=== PATIENT | male | born 1960 | race Caucasian/White ===

== ENCOUNTER 2019-01-20 03:38 | Emergency (ER) | payer MEDICAID ==
[~2019-01-20] VITALS: Ht 182.9 cm; Wt 102.0 kg
[~2019-01-20 03:38] MED LIST: CLIN-90 PO; PHEN-716 PO; POTA20TA19 PO
[2019-01-20 03:40] VITALS: BP 141/88
[2019-01-20] MEDS ORDERED: ACYC-202 PO (04:08)
== END 2019-01-20 04:22 | disposition home or self-care (01) ==
LOC: ER 03:39
DX: L84 Corns and callosities (principal); B00.9 Herpesviral infection, unspecified; I25.10 Atherosclerotic heart disease of native coronary artery without angina pectoris; E11.9 Type 2 diabetes mellitus without complications; Z86.718 Personal history of other venous thrombosis and embolism; F11.90 Opioid use, unspecified, uncomplicated; Z88.2 Allergy status to sulfonamides; Z88.8 Allergy status to other drugs, medicaments and biological substances; Z79.899 Other long term (current) drug therapy
CPT/HCPCS: 99283

== ENCOUNTER 2019-03-21 20:04 | Emergency (ER) | payer MEDICAID ==
[~2019-03-21] VITALS: Ht 182.9 cm; Wt 101.8 kg
[2019-03-21 20:41] LABS: BASOPHILS # (AUTO) 0.1 X10'3 (0-0.2); BASOPHILS % (AUTO) 0.7 % (0-1); EOSINOPHILS # (AUTO) 0.1 X10'3 (0-0.9); EOSINOPHILS % (AUTO) 1.8 % (0-6); HEMOGLOBIN 11.7 g/dl (14.0-17.9); LYMPHOCYTES # (AUTO) 1.9 X10'3 (1.1-4.8); LYMPHOCYTES % (AUTO) 27.4 % (21-51); MEAN CORPUSCULAR HEMOGLOBIN 30.6 PG (27.0-31.0); MEAN CORPUSCULAR HGB CONC 34.5 g/dL (33.0-36.5); MEAN CORPUSCULAR VOLUME 88.7 FL (78-98); MEAN PLATELET VOLUME 8.1 FL (7.4-10.4); MONOCYTES # (AUTO) 0.7 X10'3 (0-0.9); MONOCYTES % (AUTO) 10.9 % (2-12); NEUTROPHILS % (AUTO) 59.2 % (42-75); PLATELET COUNT 199 X10'3 (140-440); RED BLOOD COUNT 3.83 X10'6 (4.70-6.10); RED CELL DISTRIBUTION WIDTH 16.7 % (11.5-14.5); WHITE BLOOD COUNT 6.8 X10'3 (4.5-11.0)
[2019-03-21 20:52] LABS: ALANINE AMINOTRANSFERASE 22 U/L (12-78); ALBUMIN 3.4 G/DL (3.4-5.0); ALBUMIN/GLOBULIN RATIO 0.8 (1.1-1.5); ALKALINE PHOSPHATASE 125 IU/L (46-116); ANION GAP 9 (8-16); ASPARTATE AMINO TRANSFERASE 25 U/L (10-37); BILIRUBIN,TOTAL 0.5 MG/DL (0.1-1.0); BLOOD UREA NITROGEN 10 MG/DL (7-18); BUN/CREATININE RATIO 9.4 (5.4-32.0); CHLORIDE 103 MMOL/L (99-107); CREATININE 1.06 MG/DL (0.60-1.10); GLUCOSE 121 MG/DL (70-104); POTASSIUM 3.5 MMOL/L (3.5-5.1); SODIUM 142 MMOL/L (135-145); TOTAL CARBON DIOXIDE 30.4 MMOL/L (24-32); TOTAL PROTEIN 7.5 G/DL (6.4-8.2); eGFR 72 ML/MIN
[2019-03-21] MEDS ORDERED: NO HOME MEDS (21:42)
[2019-03-21] MEDS ORDERED: CEPH250T PO (22:29)
[2019-03-21] MEDS ORDERED: HYDROcodone/acetaminophen 5mg/325mg tablet PO ONE (22:35)
[2019-03-21] MEDS ORDERED: ondansetron 4mg rapidly disintigrating tab PO ONE (22:35)
[2019-03-21 22:50] VITALS: BP 121/98
== END 2019-03-21 22:52 | disposition home or self-care (01) ==
LOC: ER 21:28
DX: L03.116 Cellulitis of left lower limb (principal); L03.115 Cellulitis of right lower limb; I25.10 Atherosclerotic heart disease of native coronary artery without angina pectoris; E11.9 Type 2 diabetes mellitus without complications; F11.90 Opioid use, unspecified, uncomplicated; Z86.19 Personal history of other infectious and parasitic diseases; Z86.718 Personal history of other venous thrombosis and embolism; Z88.2 Allergy status to sulfonamides; Z88.8 Allergy status to other drugs, medicaments and biological substances; Z79.899 Other long term (current) drug therapy
CPT/HCPCS: 36415; 71045; 80053; 83880; 84145; 84484; 85025; 93005; 99284

== ENCOUNTER 2019-10-15 23:50 | Emergency (ER) | payer MEDICAID ==
[~2019-10-15] VITALS: Ht 182.9 cm; Wt 11.4 kg
[~2019-10-15 23:50] MED LIST changes: -CLIN-90 PO; +NO HOME MEDS; -PHEN-716 PO; -POTA20TA19 PO
--- NOTE | 2019-10-16 01:45 | NUR ---
DR TAPIA REPORTS PT WILL NEED CT WITH CONTRAST AND US OF THE LEG. [employer] OFFICER AT BEDSIDE. PT IS COOPERATIVE. VSS. PAIN IS 8 OTU OF 10 TO LEFT BACK OF KNEE, CALF.
[2019-10-16] MEDS ORDERED: iohexol 300mg/ml 100ml inj. ONE (01:52)
--- NOTE | 2019-10-16 02:03 | NUR ---
KENZIE CALLED BACK AT 02:[address]
--- NOTE | 2019-10-16 02:57 | NUR ---
pt with piv, 20 g in rac. Vascular US at bedside. Pt will then go to CT with contrast for LLE. Officer remains at bedside.
--- NOTE | 2019-10-16 03:20 | NUR ---
US completed. pt to ct now.
[2019-10-16 04:21] VITALS: BP 111/65
--- NOTE | 2019-10-16 04:30 | NUR ---
PT RETURNED FROM CT. DR. TAPIA INQUIRING ABOUT DELAY IN LABS. UPDATED THAT LABS WERE IN ERROR NOT COLLETED AND TO BE COLLECTED IMMEDIATELY. LABS DRAWN FROM PIV. PT WITH STABLE VS. OFFICER REMAINS AT BEDSIDE.
[2019-10-16] MEDS ORDERED: DOXY100C43 PO (04:42)
[2019-10-16] MEDS ORDERED: CEPH500C5 PO (04:42)
--- NOTE | 2019-10-16 04:44 | NUR ---
DR TAPIA TALKING WITH PT. ISAIASTS WE ARE WAITING FOR LAB RESULTS,BUT SHE ANTICIPATES DISCHARGE.
[2019-10-16 04:53] LABS: ALBUMIN 2.8 G/DL (3.4-5.0); ANION GAP 3 (8-16); BASOPHILS # (AUTO) 0.1 X10'3 (0-0.2); BASOPHILS % (AUTO) 1.3 % (0-1); BLOOD UREA NITROGEN 12 MG/DL (7-18); BUN/CREATININE RATIO 13.2 (5.4-32.0); CHLORIDE 102 MMOL/L (99-107); CREATININE 0.91 MG/DL (0.60-1.10); EOSINOPHILS # (AUTO) 0.2 X10'3 (0-0.9); EOSINOPHILS % (AUTO) 2.1 % (0-6); GLUCOSE 103 MG/DL (70-104); HEMATOCRIT 34.8 % (42.0-52.0); HEMOGLOBIN 11.7 g/dl (14.0-17.9); LYMPHOCYTES % (AUTO) 25.5 % (21-51); MEAN CORPUSCULAR HEMOGLOBIN 30.7 PG (27.0-31.0); MEAN CORPUSCULAR HGB CONC 33.5 g/dL (33.0-36.5); MEAN CORPUSCULAR VOLUME 91.5 FL (78-98); MEAN PLATELET VOLUME 8.1 FL (7.4-10.4); MONOCYTES # (AUTO) 0.9 X10'3 (0-0.9); MONOCYTES % (AUTO) 11.7 % (2-12); NEUTROPHILS # (AUTO) 4.7 X10'3 (1.8-7.7); NEUTROPHILS % (AUTO) 59.4 % (42-75); PLATELET COUNT 218 X10'3 (140-440); POTASSIUM 3.6 MMOL/L (3.5-5.1); RED CELL DISTRIBUTION WIDTH 14.9 % (11.5-14.5); SODIUM 135 MMOL/L (135-145); TOTAL CARBON DIOXIDE 29.8 MMOL/L (24-32); WHITE BLOOD COUNT 7.9 X10'3 (4.5-11.0); eGFR 85 ML/MIN
== END 2019-10-16 05:14 ==
LOC: ER 23:50
DX: L03.116 Cellulitis of left lower limb (principal); I80.3 Phlebitis and thrombophlebitis of lower extremities, unspecified; M79.605 Pain in left leg; M79.89 Other specified soft tissue disorders; I25.10 Atherosclerotic heart disease of native coronary artery without angina pectoris; E11.9 Type 2 diabetes mellitus without complications; F11.90 Opioid use, unspecified, uncomplicated; Z86.19 Personal history of other infectious and parasitic diseases; Z86.718 Personal history of other venous thrombosis and embolism; Z88.2 Allergy status to sulfonamides; Z88.8 Allergy status to other drugs, medicaments and biological substances; Z79.2 Long term (current) use of antibiotics
CPT/HCPCS: 36415; 73701; 80048; 85025; 93971; 99285; Q9967

== ENCOUNTER 2021-07-15 12:30 | Emergency (ER) | payer MEDICAID ==
[~2021-07-15] VITALS: Ht 182.9 cm; Wt 100.0 kg
[2021-07-15] MEDS ORDERED: NALO4SPR BOTHNARES (13:38)
[2021-07-15 14:00] VITALS: BP 121/69
--- NOTE | 2021-07-15 14:01 | NUR ---
Patient was seen and assessed by provider.
== END 2021-07-15 14:01 | disposition home or self-care (01) ==
LOC: ER 12:30
DX: T40.601A Poisoning by unspecified narcotics, accidental (unintentional), initial encounter (principal); I25.10 Atherosclerotic heart disease of native coronary artery without angina pectoris; E11.9 Type 2 diabetes mellitus without complications; F17.200 Nicotine dependence, unspecified, uncomplicated; Z86.718 Personal history of other venous thrombosis and embolism; Z72.89 Other problems related to lifestyle; Z88.2 Allergy status to sulfonamides; Z88.8 Allergy status to other drugs, medicaments and biological substances; Z79.899 Other long term (current) drug therapy; Y92.89 Other specified places as the place of occurrence of the external cause
CPT/HCPCS: 99283

== ENCOUNTER 2022-07-05 19:34 | Emergency (ER) | payer MEDICAID ==
[~2022-07-05] VITALS: Ht 182.9 cm; Wt 95.5 kg
[~2022-07-05 19:34] MED LIST changes: +NALO4SPR BOTHNARES
[2022-07-05 19:45] VITALS: BP 135/84
[2022-07-05] MEDS ORDERED: DOXYCYCLINE 100MG CAPSULE PO STA (20:04)
== END 2022-07-05 20:21 | disposition home or self-care (01) ==
LOC: ER 19:34
DX: L03.115 Cellulitis of right lower limb (principal); I50.9 Heart failure, unspecified; F17.200 Nicotine dependence, unspecified, uncomplicated; Z88.2 Allergy status to sulfonamides; Z79.899 Other long term (current) drug therapy; Z88.5 Allergy status to narcotic agent
CPT/HCPCS: 99283; A6222